=== PATIENT | female | born 1980 | race Caucasian/White ===

== ENCOUNTER 2018-06-07 08:35 | Emergency (ER) | payer BC, OTHER ==
--- OUTSIDE RECORDS SUMMARY | 2018-06-07 08:50 | XMS REPORT ---
:1980 External Reference #:[id number] Author Organization [facility], Address [address] [place] [address] Phone [phone] Care Team Providers Name Role Phone Jhon Carvajal MD Primary Care Physician Unavailable Payers Type Date Identification Numbers Payment Provider Subscriber Commercial Effective: Policy Number: [facility] Sonal Teresa 2017 [id number] Claudia Burrows PayID: [id number] [address] [place] [address] Problems Date Description Provider Status Onset: 06/19/2015 Supervison Of Normal Other Ariadna Clark CNM Active Onset: 09/24/2015 Contraception care education Dawn Mejia MD Active Onset: 10/16/2015 Cervicovaginal cytology: High grade Dawn Mejia MD Active squamous intraepithelial lesion or carcinoma Onset: 05/21/2018 Previous uterine surgical scar Mando Cummings MD Active Family History Date Family Member(s) Problem(s) Comments Father Thyroid Disease cancer Father Unknown Pt father was adopted so uncertain of family hx on his side. Mother Breast Cancer 50's Mother Stomach Cancer First Daughter Unremarkable First Brother No Current Problems First Sister Mental Retardation Second Sister No Current Problems Maternal Grandfather due to [place] () Maternal Grandmother No Current Problems Social History Type Date Description Comments Education grad school Marital Status Lives With Significant Other Lives With Daughter Diet Healthy, Well Balanced Sleep Reports normal sleep activity Smoke-Free Home is smoke-free Pets 2 cats Occupation Currently Working office work Abuse No history of abuse ETOH Use Denies alcohol use Smoking Patient is a former smoker quit 10 yrs ago Recreational Drug Use Denies Drug Use Daily Caffeine Occasionally Consumes Caffeine Tattoo/Piercing Tattoo Tattoo/Piercing Pierced ears Currently Active Patient is currently sexually active Last [place] 3 months ago Condom Use Always Age 1st [place] 17 Years Old # Partners in a Lifetime over 5 # Partners in a Lifetime Has been with current partner for 7 years STD's No STD History Allergies, Adverse Reactions, Alerts Date Description Reaction Status Severity Comments 05/09/2015 NKDA active Medications Medication Date Status Form Strength Qnty SIG Indications Ordering Provider Omeprazole 04/05/ Active Capsules 20mg 30caps 1 by Zeny Dang -, CNM / Active Unknown 0000 Levothyroxine / Active Tablets 100mcg 1 by Unknown Sodium 0000 mouth every day Metoclopramide / Active Tablets 10mg take one Unknown HCL 0000 tablet by mouth q. 6 hrs prn nausea Oxycodone HCL 08/10/ Hx Tablets 5mg 30tabs 1-2 by 659.73 Dawn Aparicio 2014 - mouth Van Riper, 08/24/ every 4 MD 2015 hours as needed Ibuprofen 08/10/ Hx Tablets 600mg 30tabs 1 by 659.73 Dawn Aparicio 2014 - mouth [place], 08/24/ every 6 MD 2015 hours as needed for pain Zantac 06/06/ Hx Tablets 150mg 60tabs 1 tab by Ariadna 2014 - mouth Amber, CNM 11/24/ twice a 2014 day Nexplanon / Hx Implant 68mg Unknown 0000 - 2017 Immunizations CPT Code Status Date Vaccine Lot # [id number] Given 04/05/2018 Tetanus, Diphtheria Toxoids/Acellular Pertussis Vaccine 7 Or > [id number] Given 07/17/2015 Tetanus, Diphtheria Toxoids/Acellular Pertussis [id number] Vaccine 7 Or > Vital Signs Date Vital Result Comment 10/15/2015 Weight 194.00 lb prior Weight in kg's 87.998 BMI (Body Mass Index) 32.3 kg/m2 BP Systolic 114 mmHg BP Diastolic 70 mmHg Height 65 inches 5'5" Height in cm's 165.1 cm 2 Parity 1 09/24/2015 Weight 194.00 lb Weight in kg's 87.998 BMI (Body Mass Index) 32.3 kg/m2 BP Systolic 115 mmHg BP Diastolic 74 mmHg Height 65 inches 5'5" Height in cm's 165.1 cm 2 Parity 1 08/17/2015 Weight 216.00 lb Weight in kg's 97.978 BMI (Body Mass Index) 35.9 kg/m2 BP Systolic 110 mmHg BP Diastolic 66 mmHg Height 65 inches 5'5" Height in cm's 165.1 cm 2 Parity 1 05/09/2015 Weight 211.00 lb Weight in kg's 95.710 BMI (Body Mass Index) 35.1 kg/m2 BP Systolic 102 mmHg BP Diastolic 70 mmHg Height 65 inches 5'5" Height in cm's 165.1 cm Last Menstrual Period 5861675 1 Parity 0 Results Test Date Test Result H/L Range Note CBC W/Auto Differential 05/28/2018 WBC 7.3 K/uL 4.8-10.8 RBC 3.94 M/uL Low 4.20-5.40 Hemoglobin 11.7 gm/dL Low 12.0-16.0 Hematocrit 34.9 % Low 36.0-48.0 MCV 88.6 fL 80.0-100.0 MCHC 33.6 % 30.0-36.5 MCH 29.8 pg 27.0-34.0 RDW 12.5 % 11.0-15.0 Platelet 204 K/uL 130-450 MPV 9.2 fL 6.0-12.0 NE% 75 % 37-80 Ly% 19 % 10-50 Mo% 6 % 0-12 Eo% 0 % <=8 Ba% 0 % <=3 NE# 5.5 K/uL 1.8-8.6 Lymph# 1.4 K/uL 0.5-5.0 Ceiba# 0.4 K/uL 0.0-1.3 Eos# 0.0 K/uL 0.0-0.9 Baso# 0.0 K/ul 0.0-0.3 Blood Type & Screen 05/28/2018 Abo/Rh Typing AB Rh Positive Specimen Expiration Date [id number] Antibody Screen Negative Basic Metabolic Panel 05/28/2018 Sodium 135 mmol/L Low 136-145 Potassium 3.5 mmol/L 3.5-5.2 Chloride 108 mmol/L 100-108 Co2 21 mmol/L 21-32 Glucose 99 mg/dL 70-100 BUN 7 mg/dL 7-21 Creatinine 0.7 mg/dL 0.6-1.3 1 Calcium 8.5 mg/dL 8.5-10.8 GFR >60 Laboratory test finding 05/28/2018 Syphilis T pallidum Abs NEGATIVE Negative Thyroid 05/12/2018 TSH 1.99 uIU/mL 0.34-4.82 Profile(T3+T4+TSH) T4 10.5 g/dL 4.7-13.0 T3 Uptake Units 1.87 TBI High 0.69-1.41 Group B Strep Culture 05/12/2018 Culture CULTURE OBSERVAT <SEE NOTE> 2 Group B Strep Culture 07/11/2015 Culture CULTURE OBSERVAT <SEE NOTE> 3 Rubella 06/19/2015 Rubella 173.62 IU/mL Rubella Ref Range < 5.0 NO <SEE NOTE> 4 Laboratory test finding 06/19/2015 Measles Igg AB @ >300.0 AU/mL Immune > 29.9 5 Mumps Igg ([place]mune) @ 81.4 AU/mL Immune >10.9 6 Urine Drug Screen 05/09/2015 Amphetamine + mAmp NEGATIVE Negative Barbiturate NEGATIVE Negative Benzodiazepine NEGATIVE Negative Opiates NEGATIVE Negative Cocaine NEGATIVE Negative THC NEGATIVE Negative PCP NEGATIVE Negative Methadone NEGATIVE Negative Utox Range 1 A Positive Drug <SEE NOTE> 7 Utoxrefvista Positive Cut-Off <SEE NOTE> 8 Laboratory test finding 05/09/2015 Glucose 1HR (OB) 103 mg/dL <=130 [place] Blood Type & Screen 05/09/2015 Abo/Rh Typing AB Rh Positive Specimen Expiration Date [id number] Antibody Screen Negative CBC W/Auto Differential 05/09/2015 WBC 9.3 K/uL 4.8-10.8 RBC 4.08 M/uL Low 4.20-5.40 Hemoglobin 12.7 gm/dL 12.0-16.0 Hematocrit 37.0 % 36.0-48.0 MCV 90.7 fL 80.0-100.0 MCHC 34.2 % 30.0-36.5 MCH 31.0 pg 27.0-34.0 RDW 12.0 % 11.0-15.0 Platelet 275 K/uL 130-450 MPV 8.4 fL 6.0-12.0 NE% 73 % 37-80 Ly% 19 % 10-50 Mo% 8 % 0-12 Eo% 0 % <=8 Ba% 0 % <=3 NE# 6.8 K/uL 1.8-8.6 Lymph# 1.7 K/uL 0.5-5.0 Ceiba# 0.7 K/uL 0.0-1.3 Eos# 0.0 K/uL 0.0-0.9 Baso# 0.0 K/ul 0.0-0.3 1 Normal Kidney Function or Mild Disease - GFR >OR=60 Chronic Kidney Disease - GFR 15-59 Renal Failure - GFR < 15 GFR not calculated on patients under 18 years of age. 2 CULTURE OBSERVATIONS CULTURE OBSERVATIONS Streptococcus agalactiae (Group B) was NOT isolated 3 CULTURE OBSERVATIONS CULTURE OBSERVATIONS Streptococcus agalactiae (Group B) was NOT isolated 4 < 5.0 NON IMMUNE 5.0 - 9.9 INDETERMINANT > 9.9 IMMUNE 5 Negative <25.0 Equivocal 25.0 - 29.9 Positive >29.9 Presence of antibodies to Rubeola is presumptive evidence of immunity except when acute infection is suspected. 6 Negative <9.0 Equivocal 9.0 - 10.9 Positive >10.9 A positive result generally indicates past exposure to Mumps virus or previous vaccination. 7 A Positive Drug Screen will not be Confirmed unless requested by the Physician. Please contact the Lab ([phone]) within 5 days for Confirmation Testing. 8 Positive Cut-Off Values Siemens [place] 500 Analyzer Amphetamine/ mAMP 1000 ng/ml Barbiturate 200 ng/ml Benzodiazepine 200 ng/ ml Cocaine 300 ng/ml Opi ate 300 ng/ml Marijuana (THC) 50 ng/ml Phencyclidine (PCP) 25 ng/ml Methadone 300 ng/ml Procedures Date CPT Code Description Status 05/31/2018 10872 Routine Obstetric Care, Only Completed 05/31/2018 77331 Routine Obstetric Care Including Antepartum Completed Care,,Postp C 05/12/2018 40839 Ultrasound Uterus Follow Up-Reevaluation Completed Size By 04/12/2018 11213 Ultrasound Uterus Follow Up-Reevaluation Completed Size By 10/15/2015 71057 Colposcopy W/Biopsy Of Cervix Completed 09/24/2015 68970 Insertion, Non-Biodegradable Drug Delivery Implant Completed 08/10/2015 41849 Routine Obstetric Care, Only Completed 08/10/2015 63967 Routine Obstetric Care Including Antepartum Completed Care,,Postp C 08/10/2015 42590 Non-Stress Test Completed 06/19/2015 16132 Ultrasound Uterus Follow Up-Reevaluation Completed Size By 06/06/2015 30531 Ultrasound Uterus Follow Up-Reevaluation Completed Size By Encounters Type Date Location Provider CPT E/M Dx Office Visit 08/10/2015 [facility] Dawn Mejia, [address] 659.73 1:38p Gynecology MD Office Visit 05/09/2015 [facility] Karishma [facility] [address] 626.0 1:15p Gynecology Ups Plan of Care Future Appointment(s):06/09/2018 1:00 pm - Mando Cummings MD at [facility] Wkhfyfybkq79/09/2018 - Mando Cummings [id number] 39 weeks gestation of brribwijaA51.211 Matern care for low transverse scar from prev del
--- OUTSIDE RECORDS SUMMARY | 2018-06-07 08:50 | XMS REPORT | Continuity of Care Document ---
:1980 Author Organization [facility] Care Team Providers Name Role Phone PAULO BLOOD Primary Care Physician Allergies and Intolerances No Known Allergies Medications RxNorm Medication Dose Route Instructions Start Date End Date Status 591017 Acetaminophen 325 650 MG ORAL EVERY 6HRS 08/10/2015 Active MG Oral Tablet NEEDED FOR PAIN [Tylenol] as needed. Ibuprofen 600 MG 600 MG ORAL EVERY 6 HOURS as Active Oral Tablet needed. Ibuprofen 600 MG 600 MG ORAL EVERY 6 HOURS as Active Oral Tablet needed. Levothyroxine Oral 100 mcg oral orally every day Active 7646 Omeprazole 20 mg oral orally every day Active 6440109 Oxycodone 5 MG ORAL EVERY 4 HOURS 06/02/2018 Active Hydrochloride 5 MG NEEDED FOR PAIN Oral Tablet as needed. (5 Days) PreCare 1 tab oral orally every day Active IBUPROFEN TABLET 600 MG ORAL EVERY 6 HOURS 08/11/2015 Completed Problems Code Code System Problem Name Start Date End Date Status 15496792 SNOMED-CT Hypothyroidism 05/28/2018 Active Procedures Code Code System Procedure Date 96X73D9 ICD-10 PCS EXTRACTION POC LOW CERVICAL OPEN 05/31/2018 Results Laboratory Results Order: CBC Specimen Source: Body Site: Legend: (G,H)=High, (GG,HH,CH,#H)=Above High Threshold, (#,L)=Low, (##,CL,#L,LL) =Below Low Threshold, (C,CC,CA,#A,A)=Abnormal LOINC Test Result Flag Range Units Date 6690-2 1WBC # Bld Auto 7.8 4.8-10.8 K/uL 06/01/2018 05:29 28543-1 1RBC # Bld 3.42 L 4.20-5.40 M/uL 06/01/2018 05:29 718-7 1Hgb Bld-mCnc 10.0 L 12.0-16.0 gm/dL 06/01/2018 05:29 4544-3 1Hct VFr Bld Auto 30.5 L 36.0-48.0 % 06/01/2018 05:29 787-2 1MCV RBC Auto 89.0 80.0-100.0 fL 06/01/2018 05:29 22780-8 1MCHC RBC-mCnc 32.9 30.0-36.5 % 06/01/2018 05:29 22692-8 1MCH RBC Qn 29.3 27.0-34.0 pg 06/01/2018 05:29 12441-6 1RDW RBC 12.4 11.0-15.0 % 06/01/2018 05:29 777-3 1Platelet # Bld Auto 179 130-450 K/uL 06/01/2018 05:29 48707-8 1PMV Bld Auto 9.1 6.0-12.0 fL 06/01/2018 05:29 Performing Lab Footnotes:[facility] - [id number] - [address] [place] [address] ADELSO [id number] Microbiology Results w Susceptibilities Order: CULTURE URINE Specimen Source: Urine Body Site: Urine specimen collection, catheterizedCultural Observations:Growth not [id number] Lab Footnotes: [facility] - [id number] [place] [address] ADELSO SHAHOMD1 Social History Code Code System Social History Description Dates Observed Observation 111618729 SNOMED CT Current Smoking Unknown if ever Status smoked UNK AdministrativeGender Sex Assigned At Unknown Vital Signs Code Code System Vitals Value Date 8310-5 LOINC Body Temperature 97.2 [degF] 06/02/2018 8865-8 LOINC Pulse Rate 55 {beats}/min 06/02/2018 9279-1 LOINC Respiratory Rate 18 /min 06/02/2018 8480-6 LOINC BP Systolic 105 mm[Hg] 06/02/2018 8462-4 LOINC BP Diastolic 72 mm[Hg] 06/02/2018 86811-6 LOINC O2% BldC Oximetry 98 % 06/01/2018 8302-2 LOINC Height 64 [in_i] 05/28/2018 01560-5 LOINC Weight 94.3 kg 05/28/2018 3140-1 LOINC Body surface area Derived from formula 1.99 m2 05/28/2018 25388-2 LOINC BMI (Body Mass Index) 35.9 kg/m2 05/28/2018 Goals Section No data in the system Health Concerns No data in the systemEncounter Diagnosis Date Code Code System Diagnosis Status 48053496 SNOMED-CT MAT CARE LW TRANS SCAR PREV C/S DEL Active Advance Directives PT STATES NO ADVANCE DIRECTIVES Directive Type Effective Date [employer] Executive Director Notes Supporting Document Name Address Phone No Directive Type 05/31/2018 11:15:00 Not Specified Not Specified Not Specified None No specified AM *RHIO - CONSENT IS YES Directive Type Effective Date [employer] Executive Director Notes Supporting Document Name Address Phone No Directive Type 08/10/2015 Not Specified Not Specified Not Specified None No specified 11:04:45 AM Family History No data in the system Functional Status Code Functional Condition Code System Date Status Breast SNOMED CT 05/31/2018 Active Verbalizes understanding SNOMED CT 05/31/2018 Active Mother/caregiver SNOMED CT 06/02/[address] Verbalize understanding SNOMED CT 06/02/[address] 05/31/[address] 06/01/[address] SNOMED CT 06/01/[address] 05/31/2018 Active Self care SNOMED CT 06/01/2018 Active Assist with set up SNOMED CT 06/01/2018 Active Cecy care SNOMED CT 06/01/[address] 06/02/[address] Active [address] demo SNOMED CT 06/01/2018 Active Up with assistance SNOMED CT 05/31/[address] 06/01/2018 Active Supervision or setup SNOMED CT 06/01/2018 Active Up ad davion SNOMED CT 06/02/2018 Active Family/so SNOMED CT 06/01/[address] 06/01/[address] 06/01/2018 Active Immunizations No data in the system Medical Equipment No data in the system Mental Status Code Cognitive Condition Code System Date Status Articulates clearly SNOMED CT 05/31/[address] 06/02/[address] 06/02/[address] 06/02/[address] 06/02/[address] 06/02/2018 Active Assessment and Plan Assessments No data in the systemPlan Of Treatment No data in the systemPending Tests No data in the system Hospital Discharge Instructions Post InstructionsDischarge DiagnosisPostpartumDischarge Referrals: Maternity to homeActivityNo excessive stair climbingNo heavy liftingDiet at HomeNo RestrictionsIf , increase fluids and caloric intakeEquipment :None requiredFollow Up Appointmentpost op appointment June 09 at [address] Cummings downstairsOtherDischarge Instructions (Mother)Continue using cecy- bottles to cleanse perineum/episiotomyFrequent peripad changes after using the bathroomWear a supportive braRest when the baby restsSpecial Instructions ( Mother)No intercourse until your Doctor says it is alrightNo douchingNo tampon useNo tub baths, but you may showerNo driving for 1 weekNotify Provider:If you are feeling depressedIf nipples become cracked, or if you have blood/drainage from the nipplesOf heavy vaginal bleeding or if passing clotsOf increased headachesOf Nausea or VomitingOf odor to vaginal flowIf Temperature is greater than 100.4 degrees FahrenheitIf there is redness or swelling of the breast or warmthAll Personal Belongings, Valuables, Pre-Adm Meds Returned to Patient/ FamilyyesThe following has been completed with the patient:Counseled on smoking cessation: ([email or web address])"Portrait of Promise" video viewedInfant safe sleeping information providedDomestic violence information providedOB discharge packet given to patientContraception discussed with provider prior to dischargeDischarge Instructions Read, Verbalized, and Acknowledged by:PatientPatients HOME MEDICATIONS returned to patient upon dischargeN/A Reason for Visit Reason for Visit C SECTION VERIFY
--- OUTSIDE RECORDS SUMMARY | 2018-06-07 08:50 | XMS REPORT | Continuity of Care Document ---
:[address] [facility] Care Team Providers Name Role Phone PAULO BLOOD Primary Care Physician Allergies and Intolerances No Known Allergies Medications RxNorm Medication Dose Route Instructions Start Date End Date Status 672067 Acetaminophen 325 650 MG ORAL EVERY 6HRS 08/10/2015 Active MG Oral Tablet NEEDED FOR PAIN [Tylenol] as needed. 535209 Ibuprofen 600 MG 600 MG ORAL EVERY 6 HOURS 08/11/2015 Active Oral Tablet Levothyroxine Oral 100 mcg oral orally every day Active 7646 Omeprazole 20 mg oral orally every day Active PreCare 1 tab oral orally every day Active 0653997 Oxycodone 5 MG ORAL Q4 HRS NEEDED 08/10/2015 Completed Hydrochloride 5 MG FOR PAIN as Oral Tablet needed. 6125691 Oxycodone 10 MG ORAL Q4 HRS NEEDED 08/10/2015 Completed Hydrochloride 5 MG FOR PAIN as Oral Tablet needed. Zantac Oral 150 mg oral orally 2 times Completed per day Problems Code Code System Problem Name Start Date End Date Status 43687858 SNOMED-CT Hypothyroidism 05/28/2018 Active Procedures No data in the system Results Laboratory Results Order: BASIC METABOLIC PANEL Specimen Source: Body Site: Legend: (G,H)=High, (GG,HH,CH,#H)=Above High Threshold, (#,L) =Low, (##,CL,#L,LL)=Below Low Threshold, (C,CC,CA,#A,A)=Abnormal LOINC Test Result Flag Range Units Date 2951-2 1Sodium SerPl-sCnc 135 L 136-145 mmol/L 05/28/2018 10:30 2823-3 1Potassium SerPl-sCnc 3.5 3.5-5.2 mmol/L 05/28/2018 10:30 2074-0 1Chloride SerPl-sCnc 108 100-108 mmol/L 05/28/2018 10:30 2027-9 1CO2 SerPl-sCnc 21 21-32 mmol/L 05/28/2018 10:30 2345-7 1Glucose SerPl-mCnc 99 70-100 mg/dL 05/28/2018 10:30 3094-0 1BUN SerPl-mCnc 7 7-21 mg/dL 05/28/2018 10:30 2160-0 1Creat SerPl-mCnc 0.7 0.6-1.3 mg/dL 05/28/2018 10:30 Interpretive Shira: 1Normal Kidney Function or Mild Disease - GFR >OR=60 Chronic Kidney Disease - GFR 15-59 Renal Failure - GFR < 15 GFR not calculated on patients under 18 years of age. Calculated (estimated) GFR is based on the MDRD Study equation, which assumes a steady state for creatinine. Estimated GFR may not be appropriate for medication dosing. 35959-5 1Ca-I SerPl-mCnc 8.5 8.5-10.8 mg/dL 05/28/2018 10:30 53723-9 1GFR/BSA.pred SerPl-ArVRat >60 05/28/2018 10:30 Performing Lab Footnotes:[facility] - [id number] - [address] [place] [address] ADELSO Sheldon PABLOOMD1 Order: CBC DIFF Specimen Source: Body Site: Legend: (G,H)=High, (GG,HH, CH,#H)=Above High Threshold, (#,L)=Low, (##,CL,#L,LL)=Below Low Threshold, (C,CC ,CA,#A,A)=Abnormal LOINC Test Result Flag Range Units Date 6690-2 1WBC # Bld Auto 7.3 4.8-10.8 K/uL 05/28/2018 10:30 48382-9 1RBC # Bld 3.94 L 4.20-5.40 M/uL 05/28/2018 10:30 718-7 1Hgb Bld-mCnc 11.7 L 12.0-16.0 gm/dL 05/28/2018 10:30 4544-3 1Hct VFr Bld Auto 34.9 L 36.0-48.0 % 05/28/2018 10:30 787-2 1MCV RBC Auto 88.6 80.0-100.0 fL 05/28/2018 10:30 74861-4 1MCHC RBC-mCnc 33.6 30.0-36.5 % 05/28/2018 10:30 71302-9 1MCH RBC Qn 29.8 27.0-34.0 pg 05/28/2018 10:30 21732-3 1RDW RBC 12.5 11.0-15.0 % 05/28/2018 10:30 777-3 1Platelet # Bld Auto 204 130-450 K/uL 05/28/2018 10:30 37328-7 1PMV Bld Auto 9.2 6.0-12.0 fL 05/28/2018 10:30 751-8 1Neutrophils # Bld Auto 75 37-80 % 05/28/2018 10:30 48406-8 1Lymphocytes NFr Bld 19 10-50 % 05/28/2018 10:30 5905-5 1Monocytes NFr Bld Auto 6 0-12 % 05/28/2018 10:30 16875-9 1Eosinophil # Bld 0 <=8 % 05/28/2018 10:30 704-7 1Basophils # Bld Auto 0 <=3 % 05/28/2018 10:30 75408-7 1Neutrophils # Bld 5.5 1.8-8.6 K/uL 05/28/2018 10:30 731-0 1Lymphocytes # Bld Auto 1.4 0.5-5.0 K/uL 05/28/2018 10:30 742-7 1Monocytes # Bld Auto 0.4 0.0-1.3 K/uL 05/28/2018 10:30 59062-2 1Eosinophil # Bld 0.0 0.0-0.9 K/uL 05/28/2018 10:30 704-7 1Basophils # Bld Auto 0.0 0.0-0.3 K/ul 05/28/2018 10:30 Performing Lab Footnotes:[facility] - [id number] - [address] [place] [id number] ADELSO [id number] Order: Syphilis T pallidum Abs Specimen Source: Blood Body Site: Legend: (G,H)=High, (GG,HH,CH,#H)=Above High Threshold, (#,L)=Low, (##,CL,#L,LL) =Below Low Threshold, (C,CC,CA,#A,A)=Abnormal LOINC Test Result Flag Range Units Date 1T pallidum Ab Ser Ql IA NEGATIVE NEGATIVE 05/28/2018 10:30 Performing Lab Footnotes:[facility] - [id number] - [address] [place] [id number] ADELSO Sheldon [id number] Blood Bank Results Order: TYPE AND SCREEN Specimen Source: Body Site: LOINC Code Test Result Date 35287 ABO/Rh Typing AB Rh Positive 05/28/2018 10:30 Specimen Expiration Date [id number] 05/28/2018 10:30 46407 Antibody Screen Negative 05/28/2018 10:30 Specimen Expiration Date [id number] 05/28/2018 10:30 Social History Code Code System Social History Observation Description Dates Observed 8843560 SNOMED CT Current Smoking Status Former smoker UNK AdministrativeGender Sex Assigned At Unknown Vital Signs Code Code System Vitals Value Date 8302-2 LOINC Height 64 [in_i] 05/28/2018 91081-1 LOINC Weight 94.3 kg 05/28/2018 3140-1 LOINC Body surface area Derived from formula 1.99 m2 05/28/2018 34475-5 LOINC BMI (Body Mass Index) 35.9 kg/m2 05/28/2018 Goals Section No data in the system Health Concerns No data in the systemEncounter Diagnosis Date Code Code System Diagnosis Status Z01.812 ICD10 ENCOUNTER PREPROCEDURAL LAB EXAM Active Advance Directives PT STATES NO ADVANCE DIRECTIVES Directive Type Effective Date Assembly Cleaner Notes Supporting Document Name Address Phone No Directive Type 05/31/2018 11:15:00 Not Specified Not Specified Not Specified None No specified AM *RHIO - CONSENT IS YES Directive Type Effective Date Assembly Cleaner Notes Supporting Document Name Address Phone No Directive Type 08/10/2015 Not Specified Not Specified Not Specified None No specified 11:04:45 AM Family History No data in the system Functional Status No data in the system Immunizations No data in the system Medical Equipment No data in the system Mental Status No data in the system Assessment and Plan Assessments No data in the systemPlan Of Treatment No data in the systemPending Tests No data in the system Hospital Discharge Instructions No data in the system Reason for Visit Reason for Visit maternal care for low transverse scar from previous delivery O34.211
--- OUTSIDE RECORDS SUMMARY | 2018-06-07 08:50 | XMS REPORT | Continuity of Care Document ---
:1980 Author Organization [facility] Care Team Providers Name Role Phone UNKNOWN, UNKNOWN Primary Care Physician Unavailable Allergies and Intolerances No Known Allergies Medications RxNorm Medication Dose Route Instructions Start Date End Date Status 510629 Acetaminophen 325 650 MG ORAL EVERY 6HRS 08/10/2015 Active MG Oral Tablet NEEDED FOR PAIN as [Tylenol] needed. 603281 Ibuprofen 600 MG 600 MG ORAL EVERY 6 HOURS 08/11/2015 Active Oral Tablet 1240432 Oxycodone 5 MG ORAL Q4 HRS NEEDED 08/10/2015 Active Hydrochloride 5 MG FOR PAIN as Oral Tablet needed. 2640435 Oxycodone 10 MG ORAL Q4 HRS NEEDED 08/10/2015 Active Hydrochloride 5 MG FOR PAIN as Oral Tablet needed. PreCare 1 tab oral orally every day Active Zantac Oral 150 mg oral orally 2 times per Active day Problems No Data in the system Procedures No data in the system Results Laboratory Results Order: THYROID PROFILE (T3u+T4+TSH) Specimen Source: Body Site: Legend: (G,H)=High, (GG,HH,CH,#H)=Above High Threshold, (#,L)=Low, (##,CL,#L,LL)=Below Low Threshold, (C,CC,CA,#A,A)=Abnormal LOINC Test Result Flag Range Units Date 3016-3 1TSH SerPl-aCnc 1.99 0.34-4.82 uIU/mL 05/12/2018 10:55 3026-2 1T4 SerPl-mCnc 10.5 4.7-13.0 ug/dL 05/12/2018 10:55 3055-1 1T3/T3 uptake index 1.87 H 0.69-1.41 TBI 05/12/2018 10:55 SerPl-Rto Performing Lab Footnotes:[facility] - [id number] - [address] [place] [address] ADELSO MENSAH Microbiology Results w Susceptibilities Order: CULTURE GROUP B STREP Specimen Source: Swab Body Site: Entire vaginaCultural Observations:Streptococcus agalactiae (Group B) was NOT [id number] Lab Footnotes:[facility] - [id number] - [address] [place] [address] ADELSO MENSAH Social History Code Code System Social History Description Dates Observed Observation 972249040 SNOMED CT Current Smoking Unknown if ever Status smoked UNK AdministrativeGender Sex Assigned At Unknown Vital Signs No data in the system Goals Section No data in the system Health Concerns No data in the systemEncounter Diagnosis Date Code Code System Diagnosis Status Z34.83 ICD10 ENC SUPV OTH NORMAL PREG THIRD TRI Active Advance Directives PT STATES NO ADVANCE DIRECTIVES Directive Type Effective Date Supervisor Instrument Repair Notes Supporting Document Name Address Phone No Directive Type 08/10/2015 1:00:37 Not Specified Not Specified Not Specified None No specified PM *RHIO - CONSENT IS YES Directive Type Effective Date Supervisor Instrument Repair Notes Supporting Document Name Address Phone No [...] data in the system Reason for Visit No data in the system
--- OUTSIDE RECORDS SUMMARY | 2018-06-07 08:50 | XMS REPORT ---
:1980 External Reference #:[id number] 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 Mother Breast Cancer 50's Mother Stomach Cancer First Daughter Unremarkable First Brother No Current Problems First Sister Mental Retardation Second Sister No Current Problems Maternal Grandfather due to GA () Maternal Grandmother No Current Problems Social [...] Active Patient is currently sexually active Last [place] 3 months ago Condom Use Always Age 1st [place] 17 Years Old # Partners in a [...] by 659.73 Dawn Aparicio 2014 - mouth Fabrizio Amaya, 08/24/ every 4 MD 2015 hours as [...] CPT Code Status Date Vaccine Lot # [id number] Given 04/05/2018 Tetanus, Diphtheria Toxoids/Acellular Pertussis Vaccine 7 Or > [address] Given 07/17/2015 Tetanus, Diphtheria Toxoids/Acellular Pertussis [id number] [...] in cm's 165.1 cm Last Menstrual Period 3455799 1 Parity 0 Results Test Date Test Result H/L Range Note Thyroid Profile(T3+T4+TSH) 05/12/2018 TSH 1.99 uIU/mL 0.34-4.82 T4 10.5 g/dL 4.7-13.0 T3 Uptake Units 1.87 TBI High 0.69-1.41 Group B Strep Culture 05/12/2018 Culture CULTURE OBSERVAT 1 <SEE NOTE> Group B Strep Culture 07/11/2015 Culture CULTURE OBSERVAT 2 <SEE NOTE> Laboratory test 06/19/2015 Measles Igg AB @ >300.0 AU/mL Immune >29.9 3 finding Mumps Igg ([place]) @ 81.4 AU/mL Immune >10.9 4 Rubella 06/19/2015 Rubella 173.62 IU/mL Rubella Ref Range < 5.0 NO <SEE NOTE> 5 Urine Drug Screen 05/09/2015 Amphetamine + mAmp NEGATIVE Negative Barbiturate NEGATIVE Negative Benzodiazepine NEGATIVE Negative Opiates NEGATIVE Negative Cocaine NEGATIVE Negative THC NEGATIVE Negative PCP NEGATIVE Negative Methadone NEGATIVE Negative Utox Range 1 A Positive Drug <SEE NOTE> 6 Utoxrefvista Positive Cut-Off <SEE NOTE> 7 Laboratory test finding 05/09/2015 Glucose 1HR (OB) 103 mg/dL <=130 [place] Blood Type & Screen 05/09/2015 Abo/Rh Typing AB Rh Positive Specimen Expiration Date [id number] Antibody Screen Negative CBC W/Auto Differential 05/09/2015 [...] 6.8 K/uL 1.8-8.6 Lymph# 1.7 K/uL 0.5-5.0 [place]# 0.7 K/uL 0.0-1.3 Eos# 0.0 K/uL 0.0-0.9 Baso# 0.0 K/ul 0.0-0.3 1 CULTURE OBSERVATIONS CULTURE OBSERVATIONS Streptococcus agalactiae (Group B) was NOT isolated 2 CULTURE OBSERVATIONS CULTURE OBSERVATIONS Streptococcus agalactiae (Group B) was NOT isolated 3 Negative <25.0 Equivocal 25.0 - 29.9 Positive >29.9 Presence of antibodies to Rubeola is presumptive evidence of immunity except when acute infection is suspected. 4 Negative <9.0 Equivocal 9.0 - 10.9 Positive >10.9 A positive result generally indicates past exposure to Mumps virus or previous vaccination. 5 < 5.0 NON IMMUNE 5.0 - 9.9 INDETERMINANT > 9.9 IMMUNE 6 A Positive Drug Screen will not be Confirmed unless requested by the Physician. Please contact the Lab ([phone]) within 5 days for Confirmation Testing. 7 Positive Cut-Off Values Siemens [place] 500 Analyzer Amphetamine/ mAMP 1000 ng/ml Barbiturate 200 ng/ml Benzodiazepine 200 ng/ ml Cocaine 300 ng/ml Opi ate 300 ng/ml Marijuana (THC) 50 ng/ml Phencyclidine (PCP) 25 ng/ml Methadone 300 ng/ml Procedures Date CPT Code Description Status 05/12/2018 81144 Ultrasound Uterus Follow Up-Reevaluation Completed Size By 04/12/2018 83643 Ultrasound Uterus Follow Up-Reevaluation Completed Size By 10/15/2015 33708 Colposcopy W/Biopsy Of Cervix Completed 09/24/2015 82702 Insertion, Non-Biodegradable Drug Delivery Implant Completed 08/10/2015 39442 Routine Obstetric Care, Only Completed 08/10/2015 88093 Routine Obstetric Care Including Antepartum Completed Care,,Postp C 08/10/2015 88126 Non-Stress Test Completed 06/19/2015 70660 Ultrasound Uterus Follow Up-Reevaluation Completed Size By 06/06/2015 41858 Ultrasound Uterus Follow Up-Reevaluation Completed Size By Encounters Type Date Location Provider CPT E/M Dx Office Visit 08/10/2015 [facility] Dawn Mejia, [address] 659.73 1:38p Gynecology MD Office Visit 05/09/2015 [facility] Karishma Hdz [facility] [address] 626.0 1:15p Gynecology [facility] Plan of Care Future Appointment(s):06/09/2018 1:00 pm - Mando Cummings MD at [facility] Ccwvttlmqw54/06/2018 11:45 am - Maria Esther Forrester M.D. at [facility]05/31/2018 12:00 pm - Maria Esther Forrester M.D. at [facility] Qqiypxdeqr63/09/2018 12:00 pm - Mando Cummings MD at [facility] Epjkhwbsug20/29/2018 - Mando Cummings MDZ3A.39 39 weeks gestation of fwwlceljqH23.211 Matern care for low transverse scar from prev del
[2018-06-07 08:54] VITALS: BP 141/64
--- NOTE | 2018-06-07 08:54 | UC ---
Respiratory Complaint HPI - HPI Summary HPI Summary: Pt presnts with c/o sob and medial chest pressure. Pt is 1 week s/p c section done in [place], [place]. Pt reports that she began feeling chest pressure, tightness and wheezing last night. Pt states that her "hormones are a mess" and that she has not been able to "sleep at all". Pt is tearful throughout exam. - History of Current Complaint Stated Complaint: DIFF BREATHING/SP Hx Obtained From: Patient Hx Last Menstrual Period: 05/31/18 ?: No Onset/Duration: Gradual Onset, Lasting Hours, Worse Since - onset Timing: Constant Severity Initially: Mild Severity Currently: Moderate Pain Intensity: 5 Character: Cough: Nonproductive Aggravating Factors: Exertion, Deep Breaths, Recumbent Position Alleviating Factors: Nothing Associated Signs And Symptoms: Positive: Wheezing - Risk Factors Pulmonary Embolism Risk Factors: Recent Surgery Cardiac Risk Factors: Negative Pseudomonas Risk Factors: Negative Tuberculosis Risk Factors: Negative - Allergies/Home Medications Allergies/Adverse Reactions: Allergies Allergy/AdvReac Type Severity Reaction Status Date / Time No Known Allergies Allergy Verified 06/07/18 08:41 Home Medications: Home Medications Levothyroxine TAB* [Synthroid TAB*] 100 mcg PO DAILY 06/07/18 [History Confirmed 06/07/18] PMH/Surg Hx/FS Hx/Imm Hx Previously Healthy: Yes - Surgical History Surgical History: Yes Surgery Procedure, Year, and Place: TWICE - Family History Known Family History: Positive: Cardiac Disease - Social History Occupation: Employed Full-time Lives: With Family Alcohol Use: None Substance Use Type: None Smoking Status (MU): Never Smoked Tobacco Have You Smoked in the Last Year: No Review of Systems Constitutional: Fatigue Skin: Negative Eyes: Negative ENT: Negative Respiratory: Shortness Of Breath, Cough Cardiovascular: Chest Pain Gastrointestinal: Negative Genitourinary: Negative Motor: Negative Neurovascular: Negative Musculoskeletal: Negative Neurological: Negative Psychological: Anxious Is Patient Immunocompromised?: No All Other Systems Reviewed And Are Negative: Yes Physical Exam Triage Information Reviewed: Yes Appearance: Other: - tearful Vital Signs: Initial Vital Signs Temp 98.7 F 06/07/18 08:41 Pulse 53 06/07/18 08:41 Resp 20 06/07/18 08:41 BP 141/64 06/07/18 08:41 Pulse Ox 98 06/07/18 08:41 Eye Exam: Normal ENT: Positive: Nasal congestion Dental Exam: Normal Neck exam: Normal Respiratory: Positive: Normal breath sounds, No respiratory distress Cardiovascular Exam: Normal Cardiovascular: Positive: Bradycardia Abdominal Exam: Normal Abdomen Description: Positive: Nontender, Other: - abdomen soft, non tender, surgical wound healing without tenderness, erythema, or discharge Musculoskeletal Exam: Normal Neurological Exam: Normal Psychological Exam: Normal Skin Exam: Normal UC Diagnostic Evaluation - Laboratory O2 Sat by Pulse Oximetry: 98 Respiratory Course/Dx - Course Course Of Treatment: I discussed with the pt the need to go directly to the closest ER for further evaluation and testing. Pt verbalized understanding and agreed to plan of care. - Differential Dx/Diagnosis Differential Diagnosis/HQI/PQRI: Pulmonary Embolism Provider Diagnoses: shortness of breath. anxiety. chest pain - Physician Notification/Consults Discussed Patient Care With: [facility] - accepted pt Time Discussed With Above Provider: 09:00 Discharge - Sign-Out/Discharge Documenting (check all that apply): Patient Departure - Discharge Plan Condition: Stable Disposition: HOME-RECOMMEND TO ED Patient Education Materials: Shortness of Breath (ED), Chest Pain (ED) Referrals: No Primary Care Phys,NOPCP [Medical Doctor] - Additional Instructions: Please go directly to the closest emergency room for further follow up and testing. - Billing Disposition and Condition Condition: STABLE Disposition: Home-Recommend to ED
== END 2018-06-07 09:08 | disposition home health service (06) ==
LOC: UCCORT 08:35
DX: R06.02 Shortness of breath (principal); F41.9 Anxiety disorder, unspecified; R07.9 Chest pain, unspecified
CPT/HCPCS: 93005; 99212; G0463